=== PATIENT | male | born 1975 | race Caucasian/White ===

== ENCOUNTER → 2016-12-07 | Outpatient (CLI) | payer OTHER ==
[~2016-12-07] MED LIST: CEPH500C PO
--- OUTSIDE RECORDS SUMMARY | 2016-12-07 08:16 | XMS REPORT | Continuity of Care Document ---
Author Author [facility] Organization [facility] Address Unknown Phone Unavailable Care Team Providers Care Itinerant Teacher Assistant Name Role Phone [facility] PCP Insurance Providers Payer Name Policy Number Subscriber Name Relationship Self Pay Malissa Pelayo 18 Self / Same As Patient Advance Directives Directive Response Recorded Date/Time Advance Directives No 01/02/15 10:35am Organ Donor No 01/02/15 10:35am Resuscitation Status Full Code 01/02/15 10:35am Problems Medical Problems Problem Onset Date Status Puncture wound Unknown Active Medications Medication Dose Route Sig Days/Qty Instructions Order Date Discontinued Date Status Cephalexin Monohydrate (Keflex) 1 Each PO THREE TIMES A DAY 15 Qty Active Social History Social History Problem Response Recorded Date/Time Alcohol Use Rarely Uses 01/02/2015 10:35am Recreational Drug Use No 01/02/2015 10:35am Recent Foreign Travel No 01/02/2015 10:20am Recent Infectious Disease Exposure No 01/02/2015 10:20am Hospitalization with Isolation Denies 01/02/2015 10:20am Smoking Status Light Tobacco Smoker 01/02/2015 10:35am Query Response Start Date Stop Date Smoking Status Light Tobacco Smoker Hospital Discharge Instructions No hospital discharge instructions. Plan of Care No plan of care. Functional Status No functional status results. Allergies, Adverse Reactions, Alerts Allergen Type Severity Reaction Status Last Updated No Known Drug Allergies Active 01/02/15 Immunizations Name Given Type Tdap 01/02/15 Administered Vital Signs Acute Vital Signs Vital Response Date/Time Pulse Rate (adult) 51 bpm (60 - 90) Respiratory Rate 18 bpm (12 - 24) O2 Sat by Pulse Oximetry 98 % (88 - 100) Blood Pressure 116/73 mm Hg Pain Pain Intensity 0 Height (Feet) 5 feet Height (Inches) 9 inches Height (Calculated Centimeters) 175.304295 cm Weight (Pounds) 180 pounds Weight (Calculated Kilograms) 81.460424 kilograms Calculated BMI 26.58 Results Laboratory Results Test Name Result Units Flags Reference Collection Date/Time Result Date/ Time Comments White Blood Count 7.0 10^3/uL 4.3-11.0 01/02/2015 10:30am 01/02/2015 10 :37am Red Blood Count 5.19 10^6/uL 4.35-5.85 01/02/2015 10:30am 01/02/2015 10 :37am Hemoglobin 16.2 G/DL 13.3-17.7 01/02/2015 10:30am 01/02/2015 10:37am Hematocrit 47 % 40-54 01/02/2015 10:30am 01/02/2015 10:37am Mean Corpuscular Volume 90 FL 80-99 01/02/2015 10:30am 01/02/2015 10: 37am Mean Corpuscular Hemoglobin 31 PG 25-34 01/02/2015 10:30am 01/02/2015 10:37am Mean Corpuscular Hemoglobin Concent 35 G/DL 32-36 01/02/2015 10:30am 10:37am Red Cell Distribution Width 12.5 % 10.0-14.5 01/02/2015 10:30am 2014 10:37am Platelet Count 210 10^3/uL 130-400 01/02/2015 10:30am 01/02/2015 10: 37am Mean Platelet Volume 10.4 FL 7.4-10.4 01/02/2015 10:30am 01/02/2015 10: 37am Sodium Level 140 MMOL/L 135-145 01/02/2015 10:30am 01/02/2015 10:59am Potassium Level 4.2 MMOL/L 3.6-5.0 01/02/2015 10:30am 01/02/2015 10: 59am Chloride Level 106 MMOL/L 98-107 01/02/2015 10:30am 01/02/2015 10:59am Carbon Dioxide Level 24 MMOL/L 21-32 01/02/2015 10:30am 01/02/2015 10: 59am Blood Urea Nitrogen 12 MG/DL 7-18 01/02/2015 10:30am 01/02/2015 10: 59am Creatinine 0.86 MG/DL 0.60-1.30 01/02/2015 10:30am 01/02/2015 10:59am BUN/Creatinine Ratio 14 01/02/2015 10:30am 01/02/2015 10:59am Estimat Glomerular Filtration Rate > 60 01/02/2015 10:30am 2014 10:59am GFR INTERPRETIVE DATA UNITS FOR ESTIMATED GFR (eGFR): mL/min/1.73 M2 REFERENCE RANGE FOR ESTIMATED GFR (eGFR) eGFR NORMAL eGFR >60 MODERATELY DECREASED eGFR 30-59 SEVERLY DECREASED eGFR 15-29 KIDNEY FAILURE <15 (OR DIALYSIS) Glucose Level 101 MG/DL 70-105 01/02/2015 10:30am 01/02/2015 10:59am Calcium Level 10.0 MG/DL 8.5-10.1 01/02/2015 10:30am 01/02/2015 10: 59am Magnesium Level 1.8 MG/DL 1.8-2.4 01/02/2015 10:30am 01/02/2015 10: 59am Total Bilirubin 0.5 MG/DL 0.1-1.0 01/02/2015 10:30am 01/02/2015 10: 59am Alkaline Phosphatase 67 U/L 40-136 01/02/2015 10:30am 01/02/2015 10: 59am Aspartate Amino Transf (AST/SGOT) 23 U/L 5-34 01/02/2015 10:30am 2014 10:59am Alanine Aminotransferase (ALT/SGPT) 34 U/L 0-55 01/02/2015 10:30am 10:59am Total Protein 7.4 G/DL 6.4-8.2 01/02/2015 10:30am 01/02/2015 10:59am Albumin 4.1 G/DL 3.2-4.5 01/02/2015 10:30am 01/02/2015 10:59am Procedures Procedure Status Date Provider(s) Tracing only of electrocardiogram completed 01/02/15 FELIPE HARVEY MD Encounters Encounter Location Date/Time Departed Emergency Room Via [facility] 01/02/15 10:21am Recent Diagnosis
--- NOTE | 2016-12-07 08:56 | Diagnostic Imaging Report ---
PROCEDURE: US Abdomen, limited. TECHNIQUE: Multiple realtime grayscale images were obtained over the abdomen in various projections. INDICATION: Right inguinal pain. FINDINGS: Static images from the real-time exam of the right inguinal region were reviewed. There is no evidence for hernia seen in the right inguinal region. IMPRESSION: No sonographic evidence for right inguinal hernia. Dictated by: Dictated on workstation # [id number]
== END ==
LOC: RAD 08:14
PROVIDERS: ATTEND Nurse Practitioner Adult Health
DX: K40.90 Unilateral inguinal hernia, without obstruction or gangrene, not specified as recurrent (principal)
CPT/HCPCS: 76705

== ENCOUNTER 2018-12-21 05:31 | Outpatient (CLI) | payer OTHER ==
[~2018-12-21] VITALS: Ht 175.3 cm; Wt 81.6 kg
== END 2018-12-21 11:09 | disposition home or self-care (01) ==
LOC: PREOP 05:31
PROVIDERS: ATTEND Surgery
DX: Z01.818 Encounter for other preprocedural examination (principal)

== ENCOUNTER 2018-12-26 06:56 | Day surgery (SDC) | payer OTHER ==
[~2018-12-26] VITALS: Ht 175.3 cm; Wt 81.6 kg
[2018-12-26 07:00] VITALS: BP 108/77
--- OUTSIDE RECORDS SUMMARY | 2018-12-26 07:00 | XMS REPORT ---
Author Author MELANIE MOORE Organization [employer] Address Unknown Phone Unavailable Care Team Providers Care Finished Goods Inspector Name Role Phone MELANIE MOORE CP Unavailable Allergies, Adverse Reactions, Alerts Substance Reaction Event Type N.K.D.A. Info Not Available Non Drug Allergy Problems Problem Type Condition Code Onset Dates Condition Status Problem Pain in joint, forearm 719.43 Active Problem Lumbago 724.2 Active Problem Sciatica 724.3 Active Assessment Panic attack F41.0 Active Problem Spasm of muscle 728.85 Active Problem Neoplasms of unspecified nature of bone, soft tissue, and skin 239.2 Active Medications Medication Code System Code Instructions Start Date End Date Status Dosage Vistaril [facility] [address]-84 50 mg Orally every 6 hrs prn Jun 14, 2016 1 capsule as needed Procedures Procedure Coding System Code Date Office Visit, Est Pt., Level 3 CPT-4 93576 Jun 14, 2016 ELECTROCARDIOGRAM, TRACING CPT-4 53239 Jun 14, 2016 MEASURE BLOOD OXYGEN LEVEL CPT-4 94155 Jun 14, 2016 Vital Signs Date/Time: Jun 14, 2016 Blood Pressure Systolic 134 mmHg Cardiac Monitoring Heart Rate 104 bpm Height 69 in Oximetry 99 % Blood Pressure Diastolic 74 mmHg Results No Known Results Summary Purpose [employer] Submission
--- OUTSIDE RECORDS SUMMARY | 2018-12-26 07:00 | XMS REPORT ---
Author Author TRUMAN MCCRACKEN Organization [facility] Address [address] [place] [address] Care Team Providers Care Electric Deicer Assembler Name Role Phone TRUMAN MCCRACKEN Unavailable PROBLEMS Type Condition ICD9-CM Code CDL56-AU Code Onset Dates Condition Status SNOMED Code Problem Pain in joint, forearm 719.43 Active 124413311 Problem Spasm of muscle 728.85 Active 16613459 Problem Other chronic pain G89.29 Active 97000255 Problem Alcohol abuse, unspecified F10.10 Active 36554418 Problem Sciatica 724.3 Active 89468092 Problem Lumbago 724.2 Active 971366832 Problem Anxiety state, unspecified F41.1 Active 431363133 Problem Neoplasms of unspecified nature of bone, soft tissue, and skin 239.2 Active 60235844 ALLERGIES No Known Allergies ENCOUNTERS Encounter Location Date Diagnosis [place] [id number] [place] [address] Sep, Injury of right wrist, initial encounter S69.91XA ; Injury of right hand, initial encounter S69.91XA ; Scrotal pain N50.82 ; Left lower quadrant pain R10.32 ; Right lower quadrant pain R10.31 and Inguinal pain of both sides R10.30 [facility] [address] [place] [address] Jul, Groin strain, right, initial encounter S76.211A ; Pain in right hand M79.641 and Other chronic pain G89.29 [facility] [address] [place] [id number] Jun, Dental examination Z01.20 [facility] [id number] [place] [address] Dec, [place] [address] [address] Nov, [facility] [address] [place] [address] Nov, Right inguinal hernia K40.90 [facility] [address] [place] [address] Jun, Anxiety state, unspecified F41.1 and Alcohol abuse, unspecified F10.10 [facility] [address], [place] [address] Jun, Panic attack F41.0 [facility] [id number] [place] [address], [place] [address] Feb, [facility] [id number] [address] Feb, [facility] [id number] [place] [address] Dec, [facility] [address] [address] Dec, [facility] [address] [place] [address] Jun, [facility] [address] [place] [address] Jun, [facility] [address] [place] [address] Jun, [facility] [address] [place] [address] Jun, [facility] [address] [address] May, [facility] [address] [place] [address] May, [facility] [address], [place] [address] May, [facility] [address] [address] Nov, [facility] [address] [facility] [id number] [address] Oct, [facility] [address], [place] [address] Oct, [facility] [address] [place] [address] Oct, [facility] [address], [place] [address] Oct, [facility] [address], [place] [address] Sep, [facility] [address], [place] [address] Sep, [facility] [address], [place] [address] Sep, [facility] [address] [address] Sep, [facility] [address], [place] [address] Aug, IMMUNIZATIONS No Known Immunizations SOCIAL HISTORY Never Assessed REASON FOR VISIT groin pain/hand pain Amee ORTEGA PLAN OF CARE Activity Details Follow Up w/ PCP, surgeon,orthopedics pending xray/US results Reason:right wrist/hand injury, bilateral scrotal and inguinal pain Pending Test Ultrasound : Abdominal, COMPLETE Pending Test Xray : Hand, Right 3 views (IN HOUSE) VITAL SIGNS Height 69 in 2018-09-19 Weight 179.6 lbs 2018-09-19 Temperature 97.4 degrees Fahrenheit 2018-09-19 Heart Rate 63 bpm 2018-09-19 Respiratory Rate 18 2018-09-19 BMI 26.52 kg/m2 2018-09-19 Blood pressure systolic 132 mmHg 2018-09-19 Blood pressure diastolic 72 mmHg 2018-09-19 MEDICATIONS No Known Medications RESULTS Name Result Date Reference Range Xray : Wrist, Right 3 views (IN HOUSE) 2018-09-19 PROCEDURES Procedure Date Ordered Result Body Site X-RAY EXAM OF HAND Sep 19, 2018 X-RAY EXAM OF WRIST Sep 19, 2018 INSTRUCTIONS MEDICATIONS ADMINISTERED No Known Medications MEDICAL (GENERAL) HISTORY Type Description Date Surgical History x7 right wrist
--- OUTSIDE RECORDS SUMMARY | 2018-12-26 07:00 | XMS REPORT ---
Author Author ANNELIESE MINOR Organization [facility] Address [address] [place] [address] Care Team Providers Care Munitions Handler Name Role Phone ANNELIESE MINOR Unavailable PROBLEMS Type Condition ICD9-CM Code TNB35-DF Code Onset Dates Condition Status SNOMED Code Problem Spasm of muscle 728.85 Active 37820554 Problem Alcohol abuse, unspecified F10.10 Active 18367807 Problem Anxiety state, unspecified F41.1 Active 161931243 Problem Lumbago 724.2 Active 028690382 Problem Pain in joint, forearm 719.43 Active 123365660 Problem Neoplasms of unspecified nature of bone, soft tissue, and skin 239.2 Active 71417831 Problem Sciatica 724.3 Active 26066603 ALLERGIES No Known Allergies SOCIAL HISTORY No smoking Hx information available PLAN OF CARE VITAL SIGNS MEDICATIONS No Known Medications RESULTS No Results PROCEDURES No Known procedures IMMUNIZATIONS No Known Immunizations
--- OUTSIDE RECORDS SUMMARY | 2018-12-26 07:00 | XMS REPORT | Continuity of Care Document ---
Author Author [facility] Address Unknown Phone Unavailable Allergies Active Description Code Type Severity Reaction Onset Reported/Identified Relationship to Patient Clinical Status Yes No Known Drug Allergies [id number] Drug Allergy Unknown N/A 01/02/2015 Medications There is no data. Problems Date Dx Coded Attending Type Code Diagnosis Diagnosed By 08/05/2011 719.07 EFFUSION OF ANKLE AND FOOT JOINT 08/05/2011 NAMITA BOO DO 719.07 EFFUSION OF ANKLE AND FOOT JOINT 08/05/2011 JAZMYN HIRSCH APRN R 719.07 EFFUSION OF ANKLE AND FOOT JOINT 08/05/2011 NIKKIE BORDEN APRNA S 719.07 EFFUSION OF ANKLE AND FOOT JOINT 08/05/2011 VIOLETA STOCK APRN L 719.07 EFFUSION OF ANKLE AND FOOT JOINT 09/09/2011 728.71 PLANTAR FASCIAL FIBROMATOSIS 09/09/2011 848.9 UNSPECIFIED SITE OF SPRAIN AND STRAIN 09/09/2011 NAMITA BOO DO K 728.71 PLANTAR FASCIAL FIBROMATOSIS 09/09/2011 NAMITA BOO DO K 848.9 UNSPECIFIED SITE OF SPRAIN AND STRAIN 09/09/2011 JAZMYN HIRSCH APRN R 728.71 PLANTAR FASCIAL FIBROMATOSIS 09/09/2011 JAZMYN HIRSCH APRN R 848.9 UNSPECIFIED SITE OF SPRAIN AND STRAIN 09/09/2011 SUHASIVA GALVEZ GAGANDEEP S 728.71 PLANTAR FASCIAL FIBROMATOSIS 09/09/2011 SUHA LENNY GAGANDEEP S 848.9 UNSPECIFIED SITE OF SPRAIN AND STRAIN 09/09/2011 MADRock GALVEZ VIOLETA L 728.71 PLANTAR FASCIAL FIBROMATOSIS 09/09/2011 MADL NAHUN GALVEZWNYA L 848.9 UNSPECIFIED SITE OF SPRAIN AND STRAIN 09/24/2011 682.9 CELLULITIS AND ABSCESS OF UNSPECIFIED SITES 09/24/2011 NAMITA BOO DO K 682.9 CELLULITIS AND ABSCESS OF UNSPECIFIED SITES 09/24/2011 JOSH HIRSCH APRNIA R 682.9 CELLULITIS AND ABSCESS OF UNSPECIFIED SITES 09/24/2011 NIKKIE BORDEN APRNA S 682.9 CELLULITIS AND ABSCESS OF UNSPECIFIED SITES 09/24/2011 MADL PROFESSIONAL ATHLETE, VIOLETA L 682.9 CELLULITIS AND ABSCESS OF UNSPECIFIED SITES 10/22/2012 719.43 PAIN IN JOINT INVOLVING FOREARM 10/22/2012 NAMITA BOO DO K 719.43 PAIN IN JOINT INVOLVING FOREARM 10/22/2012 JOSH HIRSCH APRNIA R 719.43 PAIN IN JOINT INVOLVING FOREARM 10/22/2012 MARLENI BORDEN APRNNDA S 719.43 PAIN IN JOINT INVOLVING FOREARM 10/22/2012 MADCELESTINA Wilkerson APRNNYA L 719.43 PAIN IN JOINT INVOLVING FOREARM 05/25/2013 JOSH HIRSCH APRNIA R 724.2 BACK PAIN, LOWER 05/25/2013 MARLENI BORDEN APRNNDA S 724.2 BACK PAIN, LOWER 05/25/2013 MADL LENNY, VIOLETA L 724.2 BACK PAIN, LOWER 06/04/2014 TU HIRSCH APRNRICIA R 239.2 NEOPLASM OF UNSPECIFIED NATURE OF BONE SOFT TISSUE AND SKIN 06/04/2014 TU HIRSCH APRNRICIA R 728.85 SPASM OF MUSCLE 06/04/2014 SUHASIVA GALVEZ GAGANDEEP S 239.2 NEOPLASM OF UNSPECIFIED NATURE OF BONE SOFT TISSUE AND SKIN 06/04/2014 MARLENI BORDEN APRNNDA S 728.85 SPASM OF MUSCLE 06/04/2014 MADL LENNY, VIOLETA L 239.2 NEOPLASM OF UNSPECIFIED NATURE OF BONE SOFT TISSUE AND SKIN 06/04/2014 MADL PROFESSIONAL ATHLETE, VIOLETA L 728.85 SPASM OF MUSCLE 06/19/2014 MARLENI BORDEN APRNNDA S 724.3 SCIATICA 06/19/2014 MADL PROFESSIONAL ATHLETE, VIOLETA L 724.3 SCIATICA 01/02/2015 Ot 786.50 CHEST PAIN NOS 01/02/2015 Ot 883.0 OPEN WOUND OF FINGER 01/02/2015 Ot E000.0 CIVILIAN ACTIVITY DONE FOR INCOME OR PAY 01/02/2015 Ot E019.9 OTHER ACTIVITY INVOLVING ANIMAL CARE 01/02/2015 Ot E849.1 ACCIDENT ON FARM 01/02/2015 Ot 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 01/02/2015 Ot V06.1 DIPHTHERIA- TETANUS-PERTUSSIS, COMBINED [ 12/09/2016 ANNELIESE MINOR COMMUNICATION SKILLS INSTRUCTOR Ot K40.90 UNIL INGUINAL HERNIA, W/O OBST OR GANGR, 12/21/2016 ANNELIESE MINOR COMMUNICATION SKILLS INSTRUCTOR Ot K40.90 UNIL INGUINAL HERNIA, W/O OBST OR GANGR, 01/28/2017 Ot 786.50 CHEST PAIN NOS 01/28/2017 Ot 883.0 OPEN WOUND OF FINGER 01/28/2017 Ot E000.0 CIVILIAN ACTIVITY DONE FOR INCOME OR PAY 01/28/2017 Ot E019.9 OTHER ACTIVITY INVOLVING ANIMAL CARE 01/28/2017 Ot E849.1 ACCIDENT ON FARM 01/28/2017 Ot 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 01/28/2017 Ot V06.1 DIPHTHERIA- TETANUS-PERTUSSIS, COMBINED [ 07/26/2017 VINITA MINORNETTE Jennifer COMMUNICATION SKILLS INSTRUCTOR Ot K40.90 UNIL INGUINAL HERNIA, W/O OBST OR GANGR, 12/21/2018 VINITA MINORPHIL Rodriguez COMMUNICATION SKILLS INSTRUCTOR Ot K40.90 UNIL INGUINAL HERNIA, W/O OBST OR GANGR, 12/21/2018 JUDY REED, FELISA Butts Ot Z01.818 ENCOUNTER FOR OTHER PREPROCEDURAL EXAMIN 12/24/2018 JUDY REED, FELISA Butts Ot Z01.818 ENCOUNTER FOR OTHER PREPROCEDURAL EXAMIN 12/26/2018 MINOR ANNELIESE A COMMUNICATION SKILLS INSTRUCTOR Ot K40.90 UNIL INGUINAL HERNIA, W/O OBST OR GANGR, Procedures Code Description Performed By Performed On Kev Meyers 11/08/2012 J1040 DEPO MEDROL 80 MG INJ 11/22/2012 23646 XRAY WRIST L COMP MIN 3 VIEWS 11/23/2012 Results Test Result Range CBC With Differential/Platelet - 12/01/16 09:28 WBC 5.1 x10E3/uL 3.4-10.8 RBC 4.86 x10E6/uL 4.14-5.80 Hemoglobin 15.3 g/dL 12.6-17.7 Hematocrit 45.6 % 37.5-51.0 MCV 94 fL 79-97 MCH 31.5 pg 26.6-33.0 MCHC 33.6 g/dL 31.5-35.7 RDW 13.2 % 12.3-15.4 Platelets 208 x10E3/uL 150-379 Neutrophils 54 % Lymphs 34 % Monocytes 9 % Eos 3 % Basos 0 % Neutrophils (Absolute) 2.8 x10E3/uL 1.4-7.0 Lymphs (Absolute) 1.8 x10E3/uL 0.7-3.1 Monocytes(Absolute) 0.5 x10E3/uL 0.1-0.9 Eos (Absolute) 0.1 x10E3/uL 0.0-0.4 Baso (Absolute) 0.0 x10E3/uL 0.0-0.2 Immature Granulocytes 0 % Immature Grans (Abs) 0.0 x10E3/uL 0.0-0.1 Comp. Metabolic Panel (14) - 12/01/16 09:28 Glucose, Serum 83 mg/dL 65-99 BUN 12 mg/dL 6-24 Creatinine, Serum 1.01 mg/dL 0.76-1.27 eGFR If NonAfricn Am 91 mL/min/1.73 >59 eGFR If Africn Am 105 mL/min/1.73 >59 BUN/Creatinine Ratio 12 9-20 Sodium, Serum 138 mmol/L 134-144 Potassium, Serum 4.8 mmol/L 3.5-5.2 Chloride, Serum 100 mmol/L 96-106 Carbon Dioxide, Total 24 mmol/L 18-29 Calcium, Serum 9.0 mg/dL 8.7-10.2 Protein, Total, Serum 7.1 g/dL 6.0-8.5 Albumin, Serum 4.4 g/dL 3.5-5.5 Globulin, Total 2.7 g/dL 1.5-4.5 A/G Ratio 1.6 1.1-2.5 Bilirubin, Total 0.5 mg/dL 0.0-1.2 Alkaline Phosphatase, S 50 IU/L 39-117 AST (SGOT) 31 IU/L 0-40 ALT (SGPT) 60 IU/L 0-44 Encounters ACCT No. Visit Date/Time Discharge Status Pt. Type Provider Facility Loc./Unit Complaint [id number] 06/30/2014 09:32:00 06/30/2014 23:59:59 CLS Outpatient VIOLETA STOCK APRN [id number] 06/19/2014 17:15:00 06/19/2014 23:59:59 CLS Outpatient GAGANDEEP BORDEN APRN [id number] 06/04/2014 14:39:00 06/04/2014 23:59:59 CLS Outpatient JAZMYN HIRSCH APRN [id number] 11/22/2012 13:25:00 11/22/2012 23:59:59 CLS Outpatient NAMITA BOO DO [id number] 11/01/2012 12:59:00 11/01/2012 23:59:59 CLS Outpatient [id number] 12/18/2018 13:45:00 12/18/2018 23:59:59 CLS Outpatient HARSH MOSS [facility] [id number] 12/21/2018 05:31:00 12/21/2018 11:09:00 DIS Outpatient FELISA KIM MD [facility] PREOP LEFT INGUINAL HERNIA/POSSBILE RIGHT ING. HERNIA [id number] 09/26/2018 10:00:00 09/26/2018 23:59:59 CLS Preadmit TRUMAN MCCRACKEN PROFESSIONAL ATHLETE [facility] RAD LLQ PAIN [id number] 12/07/2016 08:14:00 12/07/2016 23:59:59 CLS Outpatient ANNELIESE MINOR COMMUNICATION SKILLS INSTRUCTOR [facility] RAD RIGHT INGUINAL HERNIA [id number] 12/26/2018 06:56:00 ACT Outpatient FELISA KIM MD [facility] SDC LEFT INGUINAL HERNIA, POSSL RIGHT INGUINAL HERNIA [id number] 01/02/2015 10:21:00 Document Registration [id number] 12/02/2016 08:43:00 Document Registration
--- OUTSIDE RECORDS SUMMARY | 2018-12-26 07:00 | XMS REPORT ---
Author Author ANNELIESE MINOR Organization [facility] Address [address] [place] [address] Care Team Providers Care Survey Project Manager Name Role Phone ANNELIESE MINOR Unavailable PROBLEMS Type Condition ICD9-CM Code IVA38-MY Code Onset Dates Condition Status SNOMED Code Problem Spasm of muscle 728.85 Active 86686633 Problem Alcohol abuse, unspecified F10.10 Active 32007930 Problem Anxiety state, unspecified F41.1 Active 587450230 Problem Lumbago 724.2 Active 510381617 Problem Pain in joint, forearm 719.43 Active 839721746 Problem Neoplasms of unspecified nature of bone, soft tissue, and skin 239.2 Active 98288979 Problem Sciatica 724.3 Active 91747657 ALLERGIES Substance Reaction Event Type Date Status N.K.D.A. Unknown Non Drug Allergy Nov, Unknown SOCIAL HISTORY No smoking Hx information available PLAN OF CARE Activity Details Follow Up 2 Weeks, prn Reason: VITAL SIGNS Height 69 in 2016-12-01 Weight 185.4 lbs 2016-12-01 Temperature 97.8 degrees Fahrenheit 2016-12-01 Heart Rate 80 bpm 2016-12-01 Respiratory Rate 22 2016-12-01 BMI 27.38 kg/m2 2016-12-01 Blood pressure systolic 140 mmHg 2016-12-01 Blood pressure diastolic 80 mmHg 2016-12-01 MEDICATIONS Medication Instructions Dosage Frequency Start Date End Date Duration Status Hydrocodone-Acetaminophen 7.5-325 MG Orally every 8 hours, PRN 1 tablet as needed Nov, Active RESULTS Name Result Date Reference Range UA LONG DIP (IN HOUSE) 2016-12-01 Lot # [id number] Exp date 07/2017 Clarity clear Color yellow Odor no GLU Neg TOM Neg KET Neg SG 1.020 BLO Neg pH 8.5 Protein Neg URO 0.2 NIT Neg ARMANI Neg Lot # Exp date CBC 2016-12-01 WBC 5.1 3.4-10.8 RBC 4.86 4.14-5.80 Hemoglobin 15.3 12.6-17.7 Hematocrit 45.6 37.5-51.0 MCV 94 79-97 MCH 31.5 26.6-33.0 MCHC 33.6 31.5-35.7 RDW 13.2 12.3-15.4 Platelets 208 150-379 Neutrophils 54 Lymphs 34 Monocytes 9 Eos 3 Basos 0 Neutrophils (Absolute) 2.8 1.4-7.0 Lymphs (Absolute) 1.8 0.7-3.1 Monocytes(Absolute) 0.5 0.1-0.9 Eos (Absolute) 0.1 0.0-0.4 Baso (Absolute) 0.0 0.0-0.2 Immature Granulocytes 0 Immature Grans (Abs) 0.0 0.0-0.1 CMP 2016-12-01 Glucose, Serum 83 65-99 BUN 12 6-24 Creatinine, Serum 1.01 0.76-1.27 eGFR If NonAfricn Am 91 >59 eGFR If Africn Am 105 >59 BUN/Creatinine Ratio 12 9-20 Sodium, Serum 138 134-144 Potassium, Serum 4.8 3.5-5.2 Chloride, Serum 100 96-106 Carbon Dioxide, Total 24 18-29 Calcium, Serum 9.0 8.7-10.2 Protein, Total, Serum 7.1 6.0-8.5 Albumin, Serum 4.4 3.5-5.5 Globulin, Total 2.7 1.5-4.5 A/G Ratio 1.6 1.1-2.5 Bilirubin, Total 0.5 0.0-1.2 Alkaline Phosphatase, S 50 39-117 AST (SGOT) 31 0-40 ALT (SGPT) 60 0-44 Ultrasound : Abdomen, LIMITED (specify organ) 2016-12-07 PROCEDURES Procedure Date Ordered Related Diagnosis Body Site URINALYSIS, AUTO, W/O SCOPE Dec 01, 2016 COMPLETE CBC W/AUTO DIFF WBC Dec 01, 2016 Office Visit, Est Pt., Level 3 Dec 01, 2016 COMPREHEN METABOLIC PANEL Dec 01, 2016 VENIPUNCT, ROUTINE* Dec 01, 2016 IMMUNIZATIONS No Known Immunizations
--- OUTSIDE RECORDS SUMMARY | 2018-12-26 07:00 | XMS REPORT ---
Author Author LANDY KING Organization [employer] Address Unknown Phone Unavailable Care Team Providers Care Billing Assistant Name Role Phone LANDY KING CP Unavailable Allergies No Known Allergies Problems Problem Type Condition Code Onset Dates Condition Status Assessment Anxiety state, unspecified F41.1 Active Assessment Alcohol abuse, unspecified F10.10 Active Problem Alcohol abuse, unspecified F10.10 Active Problem Sciatica 724.3 Active Problem Anxiety state, unspecified F41.1 Active Problem Spasm of muscle 728.85 Active Problem Neoplasms of unspecified nature of bone, soft tissue, and skin 239.2 Active Problem Pain in joint, forearm 719.43 Active Problem Lumbago 724.2 Active Medications No Known Medications Procedures Procedure Coding System Code Date Psychotherapy, patient &/family, 30 minutes, established patient CPT-4 18089 Jun 14, 2016 Results No Known Results Summary Purpose [employer] Submission
--- OUTSIDE RECORDS SUMMARY | 2018-12-26 07:00 | XMS REPORT ---
Author Author ANNELIESE MINOR Organization [facility], [place], [facility] Address [address] [place] [address] Care Team Providers Care Vice Chairman Name Role Phone ANNELIESE MINOR Unavailable PROBLEMS Type Condition ICD9-CM Code GPS14-XP Code Onset Dates Condition Status SNOMED Code Problem Spasm of muscle 728.85 Active 79046923 Problem Alcohol abuse, unspecified F10.10 Active 39311049 Problem Anxiety state, unspecified F41.1 Active 862183514 Problem Lumbago 724.2 Active 899309947 Problem Pain in joint, forearm 719.43 Active 371623467 Problem Neoplasms of unspecified nature of bone, soft tissue, and skin 239.2 Active 32955362 Problem Sciatica 724.3 Active [id number] ALLERGIES No Known Allergies SOCIAL HISTORY No smoking Hx information available PLAN OF CARE VITAL SIGNS MEDICATIONS No Known Medications RESULTS No Results PROCEDURES No Known procedures IMMUNIZATIONS No Known Immunizations
[2018-12-26] MEDS ORDERED: DEXAMETHASONE 10 MG/ML (DECADRON) 1 ML VIAL ONE (07:09)
[2018-12-26] MEDS ORDERED: ROCURONIUM 10 MG/ML 5 ML SYRINGE IV ONE (07:10)
[2018-12-26] MEDS ORDERED: proPOfol 200 MG/20 ML (DIPRIVAN) VIAL IV ONE (07:10)
[2018-12-26] MEDS ORDERED: SEVOFLURANE (ULTANE) 15 ML INHAL SOLN ONE ×6 (07:10→09:09)
[2018-12-26] MEDS ORDERED: LIDOCAINE PF 2% 5 ML (XYLOCAINE) VIAL ONE (07:10)
[2018-12-26] MEDS ORDERED: fentaNYL INJECTION 250 MCG/5 ML AMP ONE (07:10)
[2018-12-26] MEDS ORDERED: ONDANSETRON 4 MG/2 ML (SDV) Z0FRAN ONE ×2 (07:10→09:09)
[2018-12-26] MEDS ORDERED: MIDAZOLAM 2 MG/2 ML (VERSED) VIAL ONE (07:11)
[2018-12-26] MEDS: LACTATED RINGERS 1,000 ML IV PRN ×2 (07:25→09:24)
[2018-12-26] MEDS ORDERED: CATHETER FLUSH 10 ML SYR IV PRN (07:45)
[2018-12-26] MEDS ORDERED: ceFAZolin 2 GM IV Premixed 50 ML IV ONE (07:45)
[2018-12-26 07:48] LABS: BASOPHILS % (AUTO) 0 % (0-10); EOSINOPHILS # (AUTO) 0.1 10^3/uL (0.0-0.3); EOSINOPHILS % (AUTO) 2 % (0-10); HEMATOCRIT 45 % (40-54); HEMOGLOBIN 15.3 G/DL (13.3-17.7); LYMPHOCYTES # (AUTO) 1.3 X 10^3 (1.0-4.0); LYMPHOCYTES % (AUTO) 22 % (12-44); MEAN CORPUSCULAR HEMOGLOBIN 32 PG (25-34); MEAN CORPUSCULAR HGB CONC 34 G/DL (32-36); MEAN CORPUSCULAR VOLUME 93 FL (80-99); MEAN PLATELET VOLUME 11.2 FL (7.4-10.4); MONOCYTES # (AUTO) 0.5 X 10^3 (0.0-1.0); MONOCYTES % (AUTO) 9 % (0-12); NEUTROPHILS # (AUTO) 3.9 X 10^3 (1.8-7.8); NEUTROPHILS % (AUTO) 66 % (42-75); PLATELET COUNT 178 10^3/uL (130-400); RED CELL DISTRIBUTION WIDTH 13.5 % (10.0-14.5); WHITE BLOOD COUNT 5.8 10^3/uL (4.3-11.0)
[2018-12-26] MEDS ORDERED: BUP/EPI 0.5% 1:200,000 (SENSORCAINE) 30 ML VIAL ONE (07:52)
--- NOTE | 2018-12-26 08:26 | Progress Note-Pre Operative ---
Pre-Operative Progress Note H&P Reviewed The H&P was reviewed, patient examined and no changes noted. Date Seen by Provider: Dec 20, 2018 Time Seen by Provider: 14:00 Date H&P Reviewed: Dec 26, 2018 Time H&P Reviewed: 08:25 Pre-Operative Diagnosis: Left inguinal hernia,possible right FELISA KIM MD Dec 26, 2018 08:26
[2018-12-26] MEDS ORDERED: KETOROLAC 30 MG/ML VIAL ONE (09:08)
[2018-12-26] MEDS ORDERED: GLYCOPYRROLATE 0.2 MG/ML (ROBINUL) 2 ML VIAL ONE (09:51)
[2018-12-26] MEDS ORDERED: NEOSTIGMINE 1 MG/ML 5 ML SYRINGE ONE (09:51)
[2018-12-26] MEDS ORDERED: ACHD5005 PO (10:00)
--- NOTE | 2018-12-26 10:00 | Operative Report ---
Operative Report Date of Procedure/Surgery Dec 26, 2018 Surgeon (s) FELISA KIM MD Welding Machine Operator Gas (s): N/A Post-Operative Diagnosis Left inguinal hernia Procedure Performed Robotic assisted repair of left inguinal hernia with mesh Description of Procedure Anesthesia Type: General Estimated blood loss (mL): Minimal Specimen(s) collected/removed None Description of the Procedure Indication for the procedure: This gentleman presented with a symptomatic left inguinal hernia. Clinically, there was suspicion about a contralateral hernia as well. He was offered repair using minimally invasive technique with robotic assistance and mesh reinforcement. Informed consent was obtained after reviewing the operative details and complications of hematoma, infection of the mesh and a low incidence of recurrence. Description of the procedure: He was placed supine on the operative table and general anesthesia induced. 2 g of Ancef were administered intravenously as prophylaxis against wound infection. Sequential compression devices were placed around his legs, to minimize the risk of venous thrombosis. A Fischer catheter was placed to decompress the bladder during surgery. It was removed at the end of the operation. Abdomen was prepared and draped in the usual sterile manner. A supraumbilical incision was made and pneumoperitoneum established using a Veress needle. Intra -abdominal pressure was maintained at 15 mmHg, using carbon dioxide insufflation. A 12 mm trocar was placed and anatomy visualized using the high definition, 3-dimensional laparoscope, associated with Loandesk system. Laparoscopic survey confirmed a left inguinal hernia with a combination of indirect and direct components. There was no true hernia on the right side. Under direct view, I placed an 8 mm trocar over each side of the abdomen and the patient was then turned into steep Trendelenburg position, to allow displacement of loops of bowel out of the pelvis. The robotic system was then docked in place. Peritoneum was incised laterally, entering the preperitoneal space. Dissection was continued in a lateral to medial fashion, protecting the inferior epigastric vessels. True's ligament was identified. Hernia sac was reduced out of the inguinal canal and a 2 cm direct direct defect was encountered. It was closed using 20V LOC sutures with robotic assistance. A low-profile polypropylene mesh measuring 15.7 x 10.3 cm was chosen for reinforcement. Intra -abdominal pressure was reduced to 11 mmHg, to allow approximation of the peritoneum without tension. The mesh was secured to True's ligament and the lateral abdominal muscles using 2-0 Vicryl sutures with the robotic assistance. Peritoneum was closed using 2-0V LOC sutures with robotic assistance. Hemostasis was satisfactory and the operation concluded. The fascia over the supraumbilical incision was closed using #1 Vicryl. Skin incisions are closed using 4-0 Vicryl, in a sip. 0.5 percent Marcaine with epinephrine was infiltrated along the incisions, both preemptively and at the conclusion of the operation. He tolerated procedure well, was extubated in the operative room and taken to the recovery room in a stable condition. Findings of the Procedure See operative report Allergies and Home Medications Allergies Coded Allergies: No Known Drug Allergies (Unverified , 01/02/15) Home Medications No Active Prescriptions or Reported Meds Patient Home Medication List Home Medication List Reviewed: Yes FELISA KIM MD Dec 26, 2018 10:00
--- NOTE | 2018-12-26 10:01 | Discharge Inst-Simple/Standard ---
Discharge Inst-Standard Discharge Medications New, Converted or Re-Newed RX: RX on Chart Patient Instructions/Follow Up Plan of Care/Instructions/FU: Band-Aids off in 48 hours. Follow-up in 4 weeks Activity as Tolerated: No Goal: No lifting over 20 pounds Discharge Diet: No Restrictions FELISA KIM MD Dec 26, 2018 10:01
[2018-12-26] MEDS ORDERED: morphine INJ 10 MG/ML 1ML (SYR OR VIAL) IVP ONE (10:15)
[2018-12-26] MEDS ORDERED: ONDANSETRON 4 MG/2 ML (SDV) Z0FRAN IVP PRN (10:15)
[2018-12-26] MEDS ORDERED: HYDROmorphone 2 MG/ML VIAL (DILAUDID) IV ONE (10:15)
[2018-12-26] MEDS ORDERED: morphine INJ 10 MG/ML 1ML (SYR OR VIAL) ONE (10:22)
[2018-12-26 11:10] VITALS: BP 113/80
[2018-12-26 11:40] VITALS: BP 123/85
[2018-12-26] MEDS ORDERED: HYDROcodone/APAP 5 MG/325 MG (LORTAB) TAB ONE (11:51)
[2018-12-26] MEDS: HYDROcodone/APAP 5 MG/325 MG (LORTAB) TAB PO ONE ×2 (11:55→12:16)
[2018-12-26 12:10] VITALS: BP 122/72
[2018-12-26] MEDS ORDERED: HYDROcodone/APAP 5 MG/325 MG (LORTAB) TAB PO ONE (12:15)
[2018-12-26 12:35] VITALS: BP 122/72
--- NOTE | 2018-12-26 15:00 | Anesthesia-General Post-Op ---
General Patient Condition Mental Status/LOC: Same as Preop Cardiovascular: Satisfactory Nausea/Vomiting: Absent Respiratory: Satisfactory Pain: Controlled (Pt was still C/O pain, but seemed to be better than immediately post-op, per patient.) Complications: Absent Post Op Complications Complications None Follow Up Care/Instructions Patient Instructions None needed. Anesthesia/Patient Condition Patient Condition Patient was seen after the procedure doing well, C/O pain but seemed to be improving per the patient, stable vital signs, no apparent adverse anesthesia problems. KIANNA AUGUSTE DO Dec 26, 2018 15:00
== END 2018-12-26 12:45 | disposition home or self-care (01) ==
LOC: SDC 06:56
PROVIDERS: ATTEND Surgery
DX: K40.90 Unilateral inguinal hernia, without obstruction or gangrene, not specified as recurrent (principal); Z11.2 Encounter for screening for other bacterial diseases; G62.9 Polyneuropathy, unspecified; F17.210 Nicotine dependence, cigarettes, uncomplicated
CPT/HCPCS: 36415; 85025; 87081; 94664

== ENCOUNTER → 2019-02-28 | Outpatient (CLI) | payer OTHER ==
[~2019-02-28] MED LIST changes: +ACHD5005 PO; +HOLD METFORMIN - RECEIVED CONTRAST 20 ML VIAL IV SCH; +IOHEXOL 350 MG/ML 100 ML (OMNIPAQUE 350) VIAL IV ONE
--- NOTE | 2019-02-28 15:37 | Diagnostic Imaging Report ---
PROCEDURE: CT abdomen and pelvis with contrast. TECHNIQUE: Multiple contiguous axial images were obtained through the abdomen and pelvis after administration of intravenous contrast. Auto Exposure Controls were utilized during the CT exam to meet ALARA standards for radiation dose reduction. INDICATION: Right lower quadrant pain and nausea. COMPARISON: No prior studies are available for comparison. FINDINGS: The lung bases are clear. No focal liver mass is identified. The gallbladder is unremarkable. No biliary ductal dilatation is seen. The pancreas and spleen are unremarkable. No adrenal mass is identified. Kidneys are unremarkable. No hydronephrosis is detected. The aorta is nonaneurysmal. The small and large bowel loops are normal in caliber. The appendix is visualized in the right lower quadrant and appears unremarkable. There is no bowel obstruction. No abdominal wall defect or evidence of inguinal hernia is identified. There is no free fluid identified. No abdominal or pelvic lymphadenopathy is seen. The bladder is unremarkable. Bony structures are nonacute. IMPRESSION: Unremarkable CT of the abdomen and pelvis. No acute feature is seen. Dictated by: Dictated on workstation # [id number]
== END ==
LOC: RAD 14:48
PROVIDERS: ATTEND Surgery
DX: R10.819 Abdominal tenderness, unspecified site (principal); R10.31 Right lower quadrant pain; R11.0 Nausea
CPT/HCPCS: 74177

== ENCOUNTER 2019-04-12 08:30 | Outpatient (RCR) | payer OTHER ==
[~2019-04-12 08:30] MED LIST changes: -HOLD METFORMIN - RECEIVED CONTRAST 20 ML VIAL IV SCH; -IOHEXOL 350 MG/ML 100 ML (OMNIPAQUE 350) VIAL IV ONE
== END 2019-05-21 | disposition home or self-care (01) ==
PROVIDERS: ATTEND Surgery
DX: S39.011A Strain of muscle, fascia and tendon of abdomen, initial encounter (principal); X50.0XXA Overexertion from strenuous movement or load, initial encounter

== ENCOUNTER 2019-07-28 09:15 | Emergency (ER) | payer OTHER ==
[~2019-07-28] VITALS: Ht 175.2 cm; Wt 90.9 kg
[2019-07-28] MEDS ORDERED: NS IV 1000 ML 1,000 ML IV ONE (09:46)
[2019-07-28 10:02] LABS: BASOPHILS % (AUTO) 0 % (0-10); EOSINOPHILS # (AUTO) 0.1 10^3/uL (0.0-0.3); EOSINOPHILS % (AUTO) 2 % (0-10); HEMATOCRIT 46 % (40-54); HEMOGLOBIN 15.9 G/DL (13.3-17.7); LYMPHOCYTES # (AUTO) 1.5 X 10^3 (1.0-4.0); LYMPHOCYTES % (AUTO) 21 % (12-44); MEAN CORPUSCULAR HEMOGLOBIN 31 PG (25-34); MEAN CORPUSCULAR HGB CONC 35 G/DL (32-36); MEAN CORPUSCULAR VOLUME 91 FL (80-99); MEAN PLATELET VOLUME 11.3 FL (7.4-10.4); MONOCYTES # (AUTO) 0.7 X 10^3 (0.0-1.0); MONOCYTES % (AUTO) 10 % (0-12); NEUTROPHILS # (AUTO) 4.9 X 10^3 (1.8-7.8); NEUTROPHILS % (AUTO) 68 % (42-75); PLATELET COUNT 171 10^3/uL (130-400); RED CELL DISTRIBUTION WIDTH 13.2 % (10.0-14.5); WHITE BLOOD COUNT 7.3 10^3/uL (4.3-11.0)
[2019-07-28 10:14] LABS: PROTHROMBIN TIME PATIENT 13.6 SEC (12.2-14.7)
--- NOTE | 2019-07-28 10:17 | Diagnostic Imaging Report ---
PROCEDURE: CT head without contrast. TECHNIQUE: Multiple contiguous axial images were obtained through the brain without the use of intravenous contrast. Auto Exposure Controls were utilized during the CT exam to meet ALARA standards for radiation dose reduction. INDICATION: Headache after recent back injection COMPARISON: None FINDINGS: The ventricles and cortical sulci are age-appropriate. There is no midline shift or mass effect. No acute intracranial hemorrhage is seen. There is no CT evidence of acute territorial ischemia. The calvarium is intact. Visualized paranasal sinuses are unremarkable. IMPRESSION: 1. No acute intracranial hemorrhage or CT evidence of acute territorial ischemia. Dictated by: Dictated on workstation # [id number]
[2019-07-28 10:19] LABS: ALANINE AMINOTRANSFERASE 37 U/L (0-55); ALBUMIN 4.2 GM/DL (3.2-4.5); ALKALINE PHOSPHATASE 45 U/L (40-136); BILIRUBIN,TOTAL 0.7 MG/DL (0.1-1.0); BUN/CREATININE RATIO 11; CALCIUM 9.3 MG/DL (8.5-10.1); CARBON DIOXIDE 24 MMOL/L (21-32); CHLORIDE 109 MMOL/L (98-107); CREATININE SERUM 0.85 MG/DL (0.60-1.30); GFR ESTIMATED > 60; GLUCOSE 93 MG/DL (70-105); MAGNESIUM 1.7 MG/DL (1.6-2.4); SODIUM 141 MMOL/L (135-145); TOTAL PROTEIN 7.3 GM/DL (6.4-8.2)
--- NOTE | 2019-07-28 10:38 | NUR ---
TO ROOM FLUIDS INFUISNG FEELING BETTER.
[2019-07-28] MEDS ORDERED: LACTATED RINGERS 1,000 ML IV ONE (10:43)
[2019-07-28 10:45] LABS: ERYTHROCYTE SEDIMENTATION RATE 1 MM/HR (0-15)
[2019-07-28] MEDS ORDERED: KETOROLAC 30 MG/ML VIAL IVP ONE (10:45)
[2019-07-28 11:10] LABS: BILIRUBIN,URINE NEGATIVE (NEGATIVE); CLARITY,URINE CLEAR; COLOR,URINE YELLOW; GLUCOSE, URINE (UA) NEGATIVE (NEGATIVE); KETONES,URINE NEGATIVE (NEGATIVE); LEUKOCYTE ESTERASE ,URINE 1+ (NEGATIVE); NITRITE,URINE NEGATIVE (NEGATIVE); PH,URINE 7 (5-9); PROTEIN,URINE 1+ (NEGATIVE); UROBILINOGEN,URINE NORMAL (NORMAL)
--- NOTE | 2019-07-28 11:11 | ED Headache ---
General Chief Complaint: General Problems/Pain Stated Complaint: SPINAL INJECTION X 5 DAYS AGO/HEAD PAIN Nursing Triage Note: AMB TO ROOM WITH FEMALE PATIENT REPORTS THAT HAD SPINE INJECTION ON MON IN [place] ON MON STARTED WITH HEADACHE. C/O EYES BEING SENSITIVE TO LIGHT. COOL WASH RAG GIVEN FOR HIS YES ON ADMIT. Nursing Sepsis Screen: No Definite Risk Source: patient (SOMEWHAT DIFFICULT HISTORIAN), spouse History of Present Illness Date Seen by Provider: Jul 28, 2019 Time Seen by Provider: 09:35 Initial Comments PT ARRIVES VIA POV FROM HOME C/O HEADACHE--FRONTAL AND BEHIND EYES STATES HE HAD "CORTISONE SHOT AT L5-S1" ON Monday AT [facility] BY DR. STAPLETON WITH PAIN MANAGEMENT--STATES "IT DIDN'T GO WELL--THEY HAD TO HOLD ME DOWN" --STATES HE HAS NOT HAD ANY INJECTIONS IN HIS BACK PRIOR TO THAT. STATES HE HAS HAD A HEADACHE SINCE MONDAY NIGHT PT DOES NOT KNOW EXACTLY WHAT KIND OF INJECTIONS HE HAD STATES HE IS LIGHT SENSITIVE HEADACHE IS WORSE WHEN HE STANDS UP C/O NAUSEA,NO VOMITING C/O MILD DIZZINESS NO VISION CHANGES NO PARESTHESIAS OR MOTOR DEFICITS NO PROBLEMS WITH BOWEL OR BLADDER FUNCTION NO PAIN IN LEGS OR BUTTOCKS STATES HE FEELS LIKE HIS HEAD AND NECK ARE SWOLLEN--FEELS LIKE "POCKETS" OF SWELLING. STATES ICE TO HIS HEAD HELPS STATES "IT'S GONE AWAY ALOT BUT IT'S STILL KILLING ME" HAS NOT ATTEMPTED TO CONTACT HIS DR. FOR THIS STATES HE WAS TOLD IF HE WASN'T BETTER ON MONDAY, HE NEEDED TO GO TO ER TOOK 1 TYLENOL YESTERDAY AM, AND TOOK 600 MG IBUPROFEN AT 0600 TODAY--NO RELIEF STATES HE HAD LEFT INGUINAL HERNIA SURGERY SEVERAL MONTHS AGO--12/26/[address] KIM, "AND NEVER RECOVERED FROM IT--I STILL HAVE PAIN" GIVES CONVOLUTED STORY ABOUT WORK COMP INJURY CAUSE FOR HERNIA STATES "THEY FOUND RUPTURED AND PINCHED NERVES IN MY BACK" --HAS CHRONIC BACK PAIN STATES HE HAS BEEN GOING TO PAIN MANAGEMENT THROUGH [employer] IN [place]. PCP: ARMINDA Allergies and Home Medications Allergies Coded Allergies: No Known Drug Allergies (Unverified , 01/02/15) Review of Systems Review of Systems Constitutional: no symptoms reported Eyes: See HPI, Photophobia Ears, Nose, Mouth, Throat: no symptoms reported Respiratory: no symptoms reported; No cough, No short of breath Cardiovascular: no symptoms reported; No chest pain Gastrointestinal: see HPI; No abdominal pain; nausea; No vomiting Genitourinary: no symptoms reported Musculoskeletal: see HPI Skin: no symptoms reported Psychiatric/Neurological: See HPI, Headache; Denies Numbness, Denies Paresthesia, Denies Seizure, Denies Tingling, Denies Tremors, Denies Weakness Past [id number]-Spjnyf-Jmvltr Hx Patient Social History Alcohol Use: Denies Use Recreational Drug Use: No Smoking Status: Current Everyday Smoker (1 PPD) Type Used: Cigarettes (1 PPD) Recent Foreign Travel: No Contact w/Someone Who Travel: No Recent Infectious Disease Expo: No Seasonal Allergies Seasonal Allergies: No Past Medical History Surgeries: Yes (RIGHT WRIST SURGERY--DOES NOT KNOW WHAT HE HAD SURGERY FOR.; LEFT INGUINAL HERNIA REPAIR ) Abdominal, Orthopedic Respiratory: Yes (NO PROBLEMS WITH ASTHMA FOR A LONG TIME) Asthma Cardiac: No Neurological: No Genitourinary: No Gastrointestinal: Yes (LEFT INGUINAL HERNIA REPAIR) Abdominal Hernia Musculoskeletal: Yes Chronic Back Pain Endocrine: No HEENT: No Cancer: No Psychosocial: No Integumentary: No Blood Disorders: No Family Medical History No Pertinent Family Hx Physical Exam Vital Signs Vital Signs - First Documented 07/28/19 09:23 Temp 35.7 Pulse 44 Resp 18 B/P (MAP) 162/100 (120) Pulse Ox 100 O2 Delivery Room Air Capillary Refill : Less Than 3 Seconds Height, Weight, BMI Height: 5'9.00" Weight: 180lbs. 0.0oz. 81.272012sn; 29.00 BMI Method:Stated General Appearance: WD/WN, no apparent distress, other (SOMEWHAT DRAMATIC ) HEENT: PERRL/EOMI, normal ENT inspection, TMs normal, pharynx normal Neck: non-tender, full range of motion, supple, normal inspection Cardiovascular: regular rate, rhythm, no murmur Respiratory: normal breath sounds, no respiratory distress, no accessory muscle use Gastrointestinal: non tender, soft Back: no CVA tenderness Extremities: normal inspection, no pedal edema, no calf tenderness, normal capillary refill Psychiatric: alert, oriented x 3 Crainal Nerves: normal hearing, normal speech, PERRL Coordination/Gait: normal gait Motor/Sensory: no motor deficit, no sensory deficit Skin: normal color, warm/dry, tattoos/piercings Progress/Results/Core Measures Results/Orders Lab Results Laboratory Tests Test 07/28/19 09:53 07/28/19 10:55 Range/Units White Blood Count 7.3 4.3-11.0 10^3/uL Red Blood Count 5.06 4.35-5.85 10^6/uL Hemoglobin 15.9 13.3-17.7 G/DL Hematocrit 46 40-54 % Mean Corpuscular Volume 91 80-99 FL Mean Corpuscular Hemoglobin 31 25-34 PG Mean Corpuscular Hemoglobin Concent 35 32-36 G/DL Red Cell Distribution Width 13.2 10.0-14.5 % Platelet Count 171 130-400 10^3/uL Mean Platelet Volume 11.3 H 7.4-10.4 FL Neutrophils (%) (Auto) 68 42-75 % Lymphocytes (%) (Auto) 21 12-44 % Monocytes (%) (Auto) 10 0-12 % Eosinophils (%) (Auto) 2 0-10 % Basophils (%) (Auto) 0 0-10 % Neutrophils # (Auto) 4.9 1.8-7.8 X 10^3 Lymphocytes # (Auto) 1.5 1.0-4.0 X 10^3 Monocytes # (Auto) 0.7 0.0-1.0 X 10^3 Eosinophils # (Auto) 0.1 0.0-0.3 10^3/uL Basophils # (Auto) 0.0 0.0-0.1 10^3/uL Erythrocyte Sedimentation Rate 1 0-15 MM/HR Prothrombin Time 13.6 12.2-14.7 SEC INR Comment 1.0 0.8-1.4 Activated Partial Thromboplast Time 28 24-35 SEC Sodium Level 141 135-145 MMOL/L Potassium Level 4.0 3.6-5.0 MMOL/L Chloride Level 109 H 98-107 MMOL/L Carbon Dioxide Level 24 21-32 MMOL/L Anion Gap 8 5-14 MMOL/L Blood Urea Nitrogen 9 7-18 MG/DL Creatinine 0.85 0.60-1.30 MG/DL Estimat Glomerular Filtration Rate > 60 BUN/Creatinine Ratio 11 Glucose Level 93 70-105 MG/DL Calcium Level 9.3 8.5-10.1 MG/DL Corrected Calcium 9.1 8.5-10.1 MG/DL Magnesium Level 1.7 1.6-2.4 MG/DL Total Bilirubin 0.7 0.1-1.0 MG/DL Aspartate Amino Transf (AST/SGOT) 20 5-34 U/L Alanine Aminotransferase (ALT/SGPT) 37 0-55 U/L Alkaline Phosphatase 45 40-136 U/L Total Protein 7.3 6.4-8.2 GM/DL Albumin 4.2 3.2-4.5 GM/DL Urine Color YELLOW Urine Clarity CLEAR Urine pH 7 5-9 Urine Specific [place] 1.010 L 1.016-1.022 Urine Protein 1+ H NEGATIVE Urine Glucose (UA) NEGATIVE NEGATIVE Urine Ketones NEGATIVE NEGATIVE Urine Nitrite NEGATIVE NEGATIVE Urine Bilirubin NEGATIVE NEGATIVE Urine Urobilinogen NORMAL NORMAL MG/DL Urine Leukocyte Esterase 1+ H NEGATIVE Urine RBC (Auto) NEGATIVE NEGATIVE Urine RBC NONE /HPF Urine WBC 2-5 /HPF Urine Crystals NONE /LPF Urine Bacteria MODERATE H /HPF Urine Casts NONE /LPF Urine Mucus LARGE H /LPF Urine Culture Indicated NO Urine Opiates Screen NEGATIVE NEGATIVE Urine Oxycodone Screen NEGATIVE NEGATIVE Urine Methadone Screen NEGATIVE NEGATIVE Urine Propoxyphene Screen NEGATIVE NEGATIVE Urine Barbiturates Screen NEGATIVE NEGATIVE Ur Tricyclic Antidepressants Screen NEGATIVE NEGATIVE Urine Phencyclidine Screen NEGATIVE NEGATIVE Urine Amphetamines Screen NEGATIVE NEGATIVE Urine Methamphetamines Screen NEGATIVE NEGATIVE Urine Benzodiazepines Screen NEGATIVE NEGATIVE Urine Cocaine Screen NEGATIVE NEGATIVE Urine Cannabinoids Screen POSITIVE H NEGATIVE My Orders Orders - MADDY MAGANA DO Ed Iv/Invasive Line Start (07/28/19 09:46) Cbc With Automated Diff (07/28/19 09:46) Comprehensive Metabolic Panel (07/28/19 09:46) Erythrocyte Sedimentation Rate (07/28/19 09:46) Magnesium (07/28/19 09:46) Protime With Inr (07/28/19 09:46) Partial Thromboplastin Time (07/28/19 09:46) Ed Iv/Invasive Line Start (07/28/19 09:46) Ns Iv 1000 Ml (Sodium Chloride 0.9%) (07/28/19 09:46) Ct Head Wo (07/28/19 09:46) Ketorolac Injection (Toradol Injection) (07/28/19 10:45) Ed Iv/Invasive Line Start (07/28/19 10:43) Lactated Ringers (Lr 1000 Ml Iv Solution (07/28/19 10:43) Drug Screen Stat (Urine) (07/28/19 10:47) Ua Culture If Indicated (07/28/19 10:47) Medications Given in ED Current Medications Medications Dose Ordered Sig/Wang Route Start Time Stop Time Status Last Admin Dose Admin Ketorolac Tromethamine 30 mg ONCE ONCE IVP 07/28/19 10:45 07/28/19 10:46 DC 07/28/19 10:47 30 MG Lactated Ringer's 1,000 ml @ 0 mls/hr Q0M ONCE IV 07/28/19 10:43 07/28/19 10:44 DC 07/28/19 10:47 1,000 MLS/HR Sodium Chloride 1,000 ml @ 0 mls/hr Q0M ONCE IV 07/28/19 09:46 07/28/19 09:48 DC 07/28/19 09:57 1,000 MLS/HR Vital Signs/I&O 07/28/19 09:23 Temp 35.7 Pulse 44 Resp 18 B/P (MAP) 162/100 (120) Pulse Ox 100 O2 Delivery Room Air Blood Pressure Mean: 120 Progress Progress Note : Progress Note SIGNIFICANT IMPROVEMENT WITH IV FLUIDS, HEADACHE ALMOST GONE, NO LONGER LIGHT SENSITIVE. AFTER OBTAINING CT RESULTS, GAVE TORADOL AND HEADACHE IS NOW COMPLETELY GONE NAUSEA RESOLVED WITH ZOFRAN Departure Impression Primary Impression: Post-procedural headache Additional Impression: Urinary tract infection Disposition: 01 HOME, SELF-CARE Condition: Improved Departure-Patient Inst. Referrals: [facility] (PCP/Family) Primary Care Physician Patient Instructions: Headache, Adult (DC), Urinary Tract Infection, Adult (DC) Add. Discharge Instructions: INCREASE YOUR FLUID INTAKE--WATER, BROTH, JELLO, GATORADE DRINK CAFFEINE TODAY DRINK ENOUGH SO YOU ARE URINATING EVERY 2 HOURS WHILE AWAKE TAKE IBUPROFEN 600 MG EVERY 6 HOURS, AND TYLENOL 1 GRAM EVERY 6 HOURS NEEDED FOR PAIN FOLLOW UP WITH DR STAPLETON TOMORROW FOR FURTHER CARE All discharge instructions reviewed with patient and/or family. Voiced understanding. Scripts Sulfamethoxazole/Trimethoprim (Bactrim Ds Tablet) 1 Each Tablet 1 EACH PO BID, #20 TAB Prov: MADDY MAGANA DO 07/28/19 MADDY MAGANA DO Jul 28, 2019 11:11
[2019-07-28 11:19] LABS: BACTERIA,URINE MODERATE /HPF
[2019-07-28 11:25] LABS: AMPHETAMINE SCREEN, URINE NEGATIVE (NEGATIVE); BARBITURATE SCREEN URINE NEGATIVE (NEGATIVE); BENZODIAZEPINES SCREEN URINE NEGATIVE (NEGATIVE); CANNABINOID SCREEN, URINE POSITIVE (NEGATIVE); COCAINE SCREEN URINE NEGATIVE (NEGATIVE); METHADONE STAT NEGATIVE (NEGATIVE); METHAMPHETAMINE SCREEN URINE S NEGATIVE (NEGATIVE); OPIATE SCREEN URINE NEGATIVE (NEGATIVE); OXYCODONE STAT NEGATIVE (NEGATIVE); PROPOXYPHENE STAT NEGATIVE (NEGATIVE); TRICYCLIC ANTIDEPRESSANTS SCRE NEGATIVE (NEGATIVE)
[2019-07-28] MEDS ORDERED: SULF1TAB35 PO (11:29)
[2019-07-28 11:34] VITALS: BP 134/88
== END 2019-07-28 11:44 | disposition home or self-care (01) ==
LOC: EDUNIT# 09:15 → ER 09:16
DX: G97.1 Other reaction to spinal and lumbar puncture (principal); N39.0 Urinary tract infection, site not specified; J45.909 Unspecified asthma, uncomplicated; F17.210 Nicotine dependence, cigarettes, uncomplicated; Z98.890 Other specified postprocedural states
CPT/HCPCS: 36415; 70450; 80053; 80306; 81000; 83735; 85025; 85610; 85652; 85730

== ENCOUNTER 2019-08-09 16:53 | Emergency (ER) | payer OTHER ==
[~2019-08-09] VITALS: Ht 177 cm; Wt 81.0 kg
[~2019-08-09 16:53] MED LIST changes: +SULF1TAB35 PO
[2019-08-09 17:30] VITALS: BP 142/82
--- NOTE | 2019-08-09 17:44 | NUR ---
PT STATED HE HAD AN "INJECTION" IN HIS BACK ON THE OF THIS MONTH. PT STATED HE WAS TOLD BY HIS WORK COMP RESIDENTIAL RECYCLE DRIVER TO COME TO ED TO BE SEEN BY AN ANESTHESIOLOGIST. PT WAS INFORMED THAT WE DO NOT HAVE THIS SERVICE AVAILABLE AT THIS MOMENT AND THAT IT WOULD BE UP TO THE PROVIDER WHAT DIRECTION THE CARE TOOK. PT STATED THAT HE WOULD JUST RATHER LEAVE AND GO TO A HOSP THAT HAD THIS SERVICE AVAILABLE. PT CALLED RESIDENTIAL RECYCLE DRIVER AND THE RESIDENTIAL RECYCLE DRIVER REQUESTED TO SPEAK WITH THIS RN. RESIDENTIAL RECYCLE DRIVER STATED THAT SHE DID NOT FEEL LIKE PT SHOULD HAVE TO SIGN AN AMA/LWOBS FORM AND THAT THEY WOULD NOT PAY FOR THIS VISIT IF IT WAS BILLED.
== END 2019-08-09 17:44 | disposition left against medical advice (07) ==
LOC: EDUNIT# 16:53 → ER 16:55
DX: R51 Headache (principal); M54.2 Cervicalgia
CPT/HCPCS: 99281

== ENCOUNTER 2021-08-02 08:44 | Outpatient (RCR) | payer OTHER ==
[~2021-08-02 08:44] MED LIST changes: -SULF1TAB35 PO; +SULF1TAB38 PO
== END 2021-08-03 | disposition home or self-care (01) ==
PROVIDERS: ATTEND Orthopaedic Surgery
DX: M43.17 Spondylolisthesis, lumbosacral region (principal)

== ENCOUNTER 2021-08-12 10:32 | Outpatient (RCR) | payer OTHER | END 2021-10-20 11:34 | disposition home or self-care (01) | PROVIDERS: ATTEND Orthopaedic Surgery | DX: M43.17 Spondylolisthesis, lumbosacral region (principal); Z98.1 Arthrodesis status ==

== ENCOUNTER → 2022-05-11 | Outpatient (CLI) | payer OTHER ==
[~2022-05-11] VITALS: Ht 175.3 cm; Wt 106.8 kg
[~2022-05-11] MED LIST changes: +GADOTERATE 0.5 MMOL/ML (CLARISCAN) 15 ML VIAL IV ONE; +IOHEXOL 300 MG/ML 50 ML (OMNIPAQUE 300) VIAL IV ONE
--- NOTE | 2022-05-11 14:38 | Diagnostic Imaging Report ---
INDICATION: Left hip pain. Patient brought to the procedure room and placed on the table in supine position. Skin of the left hip was prepped and draped in usual sterile fashion. Small amount of 1% lidocaine was utilized for local anesthesia. 20-gauge spinal needle was advanced and placed with its tip at the femoral head and neck junction laterally. 50 mL solution of iodinated contrast, normal saline and gadolinium was injected under fluoroscopic observation. 15 seconds of fluoroscopic time was utilized. Needle was removed and hemostasis was obtained. Patient tolerated the procedure well and was sent to MRI in satisfactory condition. IMPRESSION: Successful left hip injection of gadolinium contrast solution, using fluoroscopy. Dictated by: Dictated on workstation # [id number]
--- NOTE | 2022-05-11 16:34 | Diagnostic Imaging Report ---
PROCEDURE: MRI left joint lower extremity with contrast. TECHNIQUE: Multiplanar, multisequence contrast-enhanced MRI of the left lower extremity was accomplished. INDICATION: Left hip pain. COMPARISON: None available. FINDINGS: Left hip: Degenerative arthritis is present and characterized by multiple sites of full-thickness articular cartilage loss within superior aspect of the hip. A few subchondral cysts are present in the mid aspect of the femoral head at the sites of articular cartilage loss. The anterior labrum has some abnormal signal within it, likely due to nondisplaced tearing. No para-labral cyst. Small hip effusion. Bones: No avascular necrosis in the femoral heads. No bone marrow edema in the proximal femurs or pelvis that would indicate stress reaction. No feature of sacroiliitis. Muscles and tendons: The bilateral distal iliopsoas tendons are intact. Proximal hamstring complexes are normal. Adductor musculature is normal. Other: No free pelvic fluid. No pelvic or inguinal lymphadenopathy. IMPRESSION: 1. Moderate to severe osteoarthritis of left hip. There is degenerative tearing in the acetabular labrum. 2. Small hip effusion. Dictated by: Dictated on workstation # [id number]
== END ==
LOC: RAD 13:30
PROVIDERS: ATTEND Physical Medicine & Rehabilitation
DX: M16.12 Unilateral primary osteoarthritis, left hip (principal); S73.102A Unspecified sprain of left hip, initial encounter; M25.452 Effusion, left hip; X58.XXXA Exposure to other specified factors, initial encounter
CPT/HCPCS: 27093; 73525; 73722

== ENCOUNTER 2022-11-25 14:12 | Emergency (ER) | payer OTHER ==
[~2022-11-25] VITALS: Ht 172.7 cm; Wt 90.7 kg
[~2022-11-25 14:12] MED LIST changes: -GADOTERATE 0.5 MMOL/ML (CLARISCAN) 15 ML VIAL IV ONE; -IOHEXOL 300 MG/ML 50 ML (OMNIPAQUE 300) VIAL IV ONE
[2022-11-25] MEDS ORDERED: CYCL7.5T27 PO (14:41)
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
[2022-11-25 14:48] VITALS: BP 128/75
== END 2022-11-25 14:48 | disposition home or self-care (01) ==
LOC: EDUNIT# 14:12 → ER 14:16
DX: M54.50 Low back pain, unspecified (principal); F17.200 Nicotine dependence, unspecified, uncomplicated; Z28.310 Unvaccinated for COVID-19; V43.52XA Car driver injured in collision with other type car in traffic accident, initial encounter; Y92.481 Parking lot as the place of occurrence of the external cause
CPT/HCPCS: 99282

== ENCOUNTER → 2022-11-28 | Outpatient (CLI) | payer OTHER ==
[~2022-11-28] MED LIST changes: +CYCL7.5T27 PO
--- NOTE | 2022-11-28 17:39 | Diagnostic Imaging Report ---
EXAMINATION: Cervical spine radiograph EXAM DATE: 11/28/2022 3:40 PM COMPARISON: None available. HISTORY: NECK PAIN, LOWER BACK PAIN TECHNIQUE: Three views FINDINGS: Vertebral body heights and alignment are normal. Disc heights are preserved. Prevertebral soft tissues are unremarkable. No significant facet hypertrophy or perched facets. The odontoid process is intact. IMPRESSION: 1. No acute osseous abnormality. Dictated by: Dictated on workstation # [id number]
--- NOTE | 2022-11-28 18:12 | Diagnostic Imaging Report ---
EXAMINATION: Lumbar spine radiograph EXAM DATE: 11/28/2022 3:40 PM COMPARISON: None available. HISTORY: NECK PAIN, LOWER BACK PAIN TECHNIQUE: Two views FINDINGS: Vertebral body heights and alignment are normal. Surgical changes from L4 through S1 spinal fusion. Disc spacers at L4-L5 and L5-S1. Lumbar spondylosis. There is facet hypertrophy and fusion within the L4 through S1 vertebral bodies. Paraspinal soft tissues are unremarkable. No acute fracture is seen. IMPRESSION: 1. Surgical and degenerative changes of the lumbar spine without acute osseous abnormality. Dictated by: Dictated on workstation # [id number]
== END ==
LOC: RAD 15:13
PROVIDERS: ATTEND Nurse Practitioner Family
DX: M47.816 Spondylosis without myelopathy or radiculopathy, lumbar region (principal); M54.2 Cervicalgia
CPT/HCPCS: 72040; 72100

== ENCOUNTER → 2022-12-27 | Outpatient (CLI) | payer OTHER ==
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
== END ==
LOC: RAD 12:39
PROVIDERS: ATTEND Nurse Practitioner Family
DX: M54.50 Low back pain, unspecified (principal)
CPT/HCPCS: 72148

== ENCOUNTER 2023-01-09 08:03 | Outpatient (RCR) | payer OTHER | END 2023-01-10 | disposition home or self-care (01) | PROVIDERS: ATTEND Family Medicine | DX: M54.2 Cervicalgia (principal); R20.2 Paresthesia of skin; Z98.1 Arthrodesis status ==

== ENCOUNTER 2023-01-17 08:00 | Outpatient (RCR) | payer OTHER | END 2023-02-10 | disposition home or self-care (01) | PROVIDERS: ATTEND Family Medicine | DX: M54.2 Cervicalgia (principal); R20.2 Paresthesia of skin; J45.909 Unspecified asthma, uncomplicated; Z98.1 Arthrodesis status ==

== ENCOUNTER 2023-03-05 06:55 | Emergency (ER) | payer SELFPAY ==
[~2023-03-05] VITALS: Ht 187.9 cm; Wt 104.3 kg
[2023-03-05] MEDS ORDERED: HYDROmorphone 2 MG/ML VIAL (DILAUDID) IV ONE ×3 (07:15→09:30)
[2023-03-05 07:19] LABS: BASOPHILS % (AUTO) 0 % (0-10); EOSINOPHILS # (AUTO) 0.1 10^3/uL (0.0-0.3); EOSINOPHILS % (AUTO) 1 % (0-10); HEMATOCRIT 38 % (40-54); HEMOGLOBIN 12.7 g/dL (13.3-17.7); LYMPHOCYTES # (AUTO) 1.5 10^3/uL (1.0-4.0); LYMPHOCYTES % (AUTO) 21 % (12-44); MEAN CORPUSCULAR HEMOGLOBIN 30 pg (25-34); MEAN CORPUSCULAR HGB CONC 34 g/dL (32-36); MEAN CORPUSCULAR VOLUME 89 fL (80-99); MEAN PLATELET VOLUME 10.2 fL (9.0-12.2); MONOCYTES # (AUTO) 0.6 10^3/uL (0.0-1.0); MONOCYTES % (AUTO) 9 % (0-12); NEUTROPHILS # (AUTO) 4.8 10^3/uL (1.8-7.8); NEUTROPHILS % (AUTO) 68 % (42-75); PLATELET COUNT 364 10^3/uL (130-400); WHITE BLOOD COUNT 7.1 10^3/uL (4.3-11.0)
[2023-03-05] MEDS ORDERED: HYDROmorphone 2 MG/ML VIAL (DILAUDID) ONE (07:22)
[2023-03-05 07:23] LABS: ALBUMIN 3.9 GM/DL (3.2-4.5); POTASSIUM 3.6 MMOL/L (3.6-5.0)
[2023-03-05 07:25] LABS: CALCIUM 9.4 MG/DL (8.5-10.1)
[2023-03-05 07:26] LABS: TOTAL PROTEIN 7.1 GM/DL (6.4-8.2)
[2023-03-05 07:27] LABS: PROTHROMBIN TIME PATIENT 13.5 SEC (12.2-14.7)
[2023-03-05 07:28] LABS: BILIRUBIN,TOTAL 0.4 MG/DL (0.1-1.0)
[2023-03-05 07:29] LABS: CREATININE SERUM 0.85 MG/DL (0.60-1.30)
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
[2023-03-05] MEDS ORDERED: KETAMINE INJECTION 500 MG in NS IV 500 ML 500 ML IV STA (07:46)
[2023-03-05] MEDS ORDERED: KETAMINE 50 MG/5 ML SYRINGE IV ONE (08:00)
[2023-03-05] MEDS ORDERED: KETAMINE HCL 100 MG/ML 5 ML VIAL IV ONE (08:00)
[2023-03-05] MEDS ORDERED: LORazepam INJ 2 MG/ML (ATIVAN) VIAL IVP ONE ×3 (08:30→10:30)
--- NOTE | 2023-03-05 08:44 | Diagnostic Imaging Report ---
INDICATION: Pelvic pain, felt something snap in hip. Total hip replacement 2 weeks ago. TECHNIQUE: AP pelvis. CORRELATION STUDY: None FINDINGS: Bipolar hip arthroplasty hardware is present. There is a faint lucent line over the proximal femur. The hardware appears to be intact. Pectineal lines and obturator rings are maintained. Visualized portions of the lower lumbosacral spinal fixation hardware unremarkable. There is mildly advanced degenerative change of the right hip. IMPRESSION: 1. Postoperative left bipolar hip arthroplasty. Lucency with proximal femoral diaphyseal shaft. Corresponds to fracture on dedicated femur views. Indeterminate whether this is acute or subacute fracture. Dictated by: Dictated on workstation # [id number]
[2023-03-05] MEDS ORDERED: NS IV 1000 ML 1,000 ML IV SCH (08:45)
--- NOTE | 2023-03-05 08:47 | Diagnostic Imaging Report ---
INDICATION: leg pain. TECHNIQUE: AP and lateral views left femur, 7:45 AM. CORRELATION STUDY: None FINDINGS: Postoperative changes bipolar left hip arthroplasty. Findings are positive for an obliquely oriented fracture of the proximal femoral diaphyseal shaft. The mid and distal femur are intact. IMPRESSION: 1. Positive for subtle, minimally displaced obliquely oriented periprosthetic fracture proximal left femur. Given recent surgical history, age of this is indeterminate. Dictated by: Dictated on workstation # [id number]
[2023-03-05] MEDS ORDERED: NS IV 1000 ML 1,000 ML IV ONE (10:15)
--- NOTE | 2023-03-05 10:27 | Diagnostic Imaging Report ---
PROCEDURE: CT left lower extremity without contrast. TECHNIQUE: Multiple contiguous axial images were obtained through the left lower extremity without the use of intravenous contrast. Sagittal and coronal reformations were then performed. Auto Exposure Controls were utilized during the CT exam to meet ALARA standards for radiation dose reduction. INDICATION: Left femur fracture There is total left hip arthroplasty. Acetabular component appears to be well seated and there is no dislocation. There is an oblique slightly angulated fracture through the proximal shaft of the left femur. This extends along the femoral stem component with mild widening of the distance between the upper femoral prosthesis and the proximal femoral shaft and greater trochanter. There is mild associated fluid which may represent hematoma superior to the prosthesis as well. IMPRESSION: Mildly angulated fracture of the proximal femoral shaft adjacent to the femoral prosthetic stem with mild widening of the gap between the prosthesis and bone and associated adjacent hematoma. Dictated by: Dictated on workstation # [id number]
[2023-03-05 12:45] VITALS: BP 152/69
[2023-03-05] MEDS ORDERED: NS IV 500 ML 500 ML ONE (13:41)
== END 2023-03-05 14:39 | disposition short-term general hospital (02) ==
LOC: EDUNIT# 06:55 → ER 06:58
DX: S72.332A Displaced oblique fracture of shaft of left femur, initial encounter for closed fracture (principal); T84.021A Dislocation of internal left hip prosthesis, initial encounter; F41.9 Anxiety disorder, unspecified; F11.29 Opioid dependence with unspecified opioid-induced disorder; F17.290 Nicotine dependence, other tobacco product, uncomplicated; Z28.310 Unvaccinated for COVID-19; X50.0XXA Overexertion from strenuous movement or load, initial encounter; Y92.009 Unspecified place in unspecified non-institutional (private) residence as the place of occurrence of the external cause
CPT/HCPCS: 36415; 72170; 73552; 73700; 80053; 85025; 85610; 85730